=== PATIENT | female | born 1990 | race African-American/Black ===

== ENCOUNTER 2019-05-19 06:44 | Observation (INO) ==
--- NOTE | 2019-05-19 07:09 | PROVIDER DOCUMENTATION ---
HPI-Abdominal Pain/GI Problem - General Chief Complaint: Nausea/Vomiting Stated Complaint: ABD PAIN,NAUSEA Time Seen by Provider: 05/19/19 06:58 Source: patient Allergies/Adverse Reactions: Patient Allergies Allergy/AdvReac Type Severity Reaction Status Date / Time No Known Allergies Allergy Verified 05/19/19 06:52 Home Medications: Home Medication List Medication Instructions Recorded Confirmed Last Taken Type Dicyclomine [Bentyl] 10 mg PO Q6H PRN PRN #30 cap 05/17/19 05/19/19 05/19/19 Rx Famotidine [Pepcid] 20 mg PO BID #60 tab 05/17/19 05/19/19 05/19/19 Rx Ondansetron [Zofran] 4 mg PO Q4H PRN PRN #30 tab 05/17/19 05/19/19 05/19/19 Rx Sulfamethoxazole/Trimethoprim 1 ea PO Q12H #14 tab 05/17/19 05/19/19 05/19/19 Rx [Bactrim Ds Tablet] Promethazine [Phenergan] 25 mg PO Q6H PRN PRN #20 tab 05/18/19 05/19/19 05/19/19 Rx - History of Present Illness-ABD Nature of Presenting Problems: Patient complains of Nuasia, vomiting and diarrhea for 3 days. She was seen at [facility] twice yesterday. She states she is not better and has lower abdominal pain Abdominal Pain Onset Location: reports: LUQ, RLQ Pain Radiation: reports: no radiation Quality of Pain: reports: aching Onset/Duration: reports: 3 days ago Timing: reports: still present Activities at Onset: reports: none Exposure to sick contacts?: No Modifying Factors: improves with: nothing Associated Symptoms: reports: denies symptoms Last BM: last night Dark Stools Present?: reports: none noticed Rectal Bleeding: reports: none Rectal Pain: reports: none Emesis Description: reports: clear Bruising or Bleeding Gums?: No Similar Symptoms Previously?: No Recently seen or treated by another doctor?: No Review of Systems - Adult - REVIEW OF SYSTEMS - ADULT Constitutional: reports: no symptoms reported Eyes: reports: no symptoms reported Ears, Nose, Mouth & Throat: reports: no symptoms reported Cardiovascular: reports: no symptoms reported Respiratory: reports: no symptoms reported Gastrointestinal: reports: see HPI Genitourinary: reports: see HPI Musculoskeletal: reports: no symptoms reported Neurological: reports: no symptoms reported Psychiatric: reports: no symptoms reported Endocrine: reports: no symptoms reported Past History - Adult - PAST MEDICAL HISTORY-ADULT Review of Records: reports: Old Records Reviewed, Nursing Assessment Review Major Childhood Illnesses: reports: denies history Cardiovascular: reports: denies history Respiratory: reports: asthma Gastrointestinal: reports: denies history Obstetrical/Gynecological: reports: denies history Genitourinary: reports: denies history Musculoskeletal: reports: denies history Neurological: reports: denies history Psychiatric: reports: bipolar Endocrine/Immune: reports: denies history Other Conditions: reports: denies history - PRIOR SURGERIES/PROCEDURES Surgical/Procedure History: reports: cholecystectomy, BTL, - PRIOR HOSPITALIZATIONS Prior Hospitalizations: reports: for other non-related - IMMUNIZATION STATUS Childhood Immunizations: See Nurse Assessment Flu Vaccine: See Nurse Assessment - FAMILY HISTORY Family History: reviewed, not pertinent Physical Exam-General - PHYSICAL EXAM-ADULT Initial Vital Signs Reviewed: Yes - CONSTITUTIONAL General Appearance: appears well, alert - EYES Eyes: PERRL/EOMI, pink conjunctivae - HEAD, EARS, NOSE, MOUTH & THROAT HENMT: normocephalic/atraumatic, moist mucous membranes - NECK Neck: non-tender, full range of motion - RESPIRATORY Respiratory: chest non-tender, lungs clear - CARDIOVASCULAR Cardiovascular: normal peripheral pulses, regular rate, rhythm, no edema - GASTROINTESTINAL (ABDOMEN) Abdominal Exam: normal bowel sounds, soft, tenderness (says tender in lower abdomen with deep palpation) - LYMPHATIC Lymphatic: no adenopathy - MUSCULOSKELETAL Back Exam: normal inspection, no CVA tenderness Extremity: normal range of motion, non-tender, normal gait Progress - PLAN OF CARE/RESULTS Progress/Plan/Lab Results: Vital Signs - 8 hr 05/19/19 06:49 Temperature 97.8 F Pulse Rate 76 Respiratory Rate 16 Blood Pressure 125/81 O2 Sat by Pulse Oximetry 100 Orders Category Date Time Status CBC WITH ELECTRONIC DIFF [HEME] Stat Lab 05/19/19 07:05 Uncollected COMPREHENSIVE METABOLIC PANEL [CHEM] Stat Lab 05/19/19 07:05 Ordered UA NIMS W/REFLEX CULT [URINALYSIS] Stat Lab 05/19/19 07:04 Uncollected Result Diagrams: 05/19/19 07:20 05/19/19 07:20 - CONSULTS/PCP/HOSPITALIST Notification #1 *Consult/PCP/Hospitalist*: laureano Time Discussed: 09:12 (Admit to Dr Gutierrez) Departure - Departure Date of Disposition Decision: 05/19/19 Time of Disposition Decision: 09:13 DIAGNOSIS: UTI (urinary tract infection), Intractable vomiting with nausea Disposition: ADMITTED INPATIENT 09 Certified Medical Emergency: Emergent Condition: Stable Referrals and Follow-Ups: Geri De Oliveira CRNP [Primary Care Provider] - - Critical Care Note This patient required my direct & personal management of CC.: No Attestation - Physician/ NIRALI Attestation Patient care was provided by Advanced Practice Provider:: No The physician spent face to face time with patient:: Yes Advanced Practice Provider documentation review:: Supervising physician onsite and consulted in the evaluation and care of this patient. The physician did have a face to face encounter with the patient.
[2019-05-19] MEDS ORDERED: ZOFRAN IV ONE (07:32)
[2019-05-19 07:37] LABS: URINE SOURCE CATH
[2019-05-19 07:49] LABS: BASO# 0.02 X1000 (0.0-0.2); BASO% 0.2 % (0.0-0.8); EOS# 0.01 X1000 (0.0-0.7); EOS% 0.1 % (0.0-10.0); HEMATOCRIT 38.1 % (37.0-47.0); HEMOGLOBIN 12.4 g/dL (12.0-16.0); IMM GRAN# 0.04 X1000 (0.0-0.04); IMM GRAN% 0.3 % (0.0-0.5); LYMPH# 2.11 X1000 (1.2-3.4); LYMPH% 18.1 % (20.5-51.1); MCH 29.7 PG (27-31); MCHC 32.5 g/dL (33-37); MCV 91.1 FL (81-99); MONO# 0.76 X1000 (0.11-0.59); MONO% 6.5 % (1.7-9.3); MPV 9.2 FL (7.4-10.4); NEUT# 8.69 X1000 (1.4-6.5); NEUT% 74.8 % (42.2-75.2); PLT 365 X1000 (130-400); RBC 4.18 XMIL (4.2-5.4); RDW 13.5 % (11.5-14.5); WBC 11.63 X1000 (4.8-10.8)
[2019-05-19 07:50] LABS: BILIRUBIN URINE NEGATIVE (NEGATIVE); BLOOD URINE MODERATE (NEGATIVE); COLOR ORANGE; GLUCOSE URINE NEGATIVE (NEGATIVE); KETONE URINE 40 mg/dL (NEGATIVE); LEUKOCYTES URINE LARGE (NEGATIVE); NITRITE URINE NEGATIVE (NEGATIVE); PH URINE 6.5; PROTEIN URINE 70 mg/dL (NEGATIVE); SP GRAVITY URINE 1.032; TURBIDITY URINE TURBID (CLEAR); UROBILINOGEN URINE 3 mg/dL (NORMAL)
[2019-05-19 07:52] LABS: UR EPITHELIAL CELLS >10 /HPF (<10); URINE BACTERIA 2+ /HPF; URINE RBC TNTC /HPF (<10); URINE WBC TNTC /HPF (<10)
[2019-05-19 08:02] LABS: AGAP 17; ALB/GLOB RATIO 1.4; ALBUMIN 4.2 g/dL (3.5-5.0); ALKALINE PHOSPHATASE 74 U/L (32-104); BUN 8 mg/dL (8-22); CALCIUM 8.8 mg/dL (8.8-10.2); CHLORIDE 100 mmol/L (98-107); COSMO 279; CREATININE 1.2 mg/dL (0.5-0.9); ESTIMATED GFR > 60; GLUCOSE 87 mg/dL (70-104); GOT 17 U/L (10-30); GPT 12 U/L (10-36); POTASSIUM 2.9 mmol/L (3.5-5.1); SODIUM 141 mmol/L (136-145); TCO2 24 mmol/L (25-35); TOTAL BILIRUBIN 0.69 mg/dL (0.20-1.00); TOTAL PROTEIN 7.2 g/dL (6.3-8.3)
[2019-05-19] MEDS ORDERED: NS 1,000 ML IV ONE (08:07)
[2019-05-19] MEDS ORDERED: POTASSIUM CHLORIDE 10 MEQ/SWI 10 MEQ/100 ML IVPB IV ONE (08:08)
[2019-05-19] MEDS ORDERED: SODIUM CHLORIDE 0.9% INJ ONE (08:41)
[2019-05-19] MEDS ORDERED: PHENERGAN IV ONE (08:41)
[2019-05-19] MEDS ORDERED: LEVAQUIN 500 MG/D5W 500 MG/100 ML IVPB IV ONE (08:43)
[2019-05-19] MEDS ORDERED: TYLENOL PO PRN (10:17)
[2019-05-19] MEDS ORDERED: BENTYL PO PRN (10:17)
[2019-05-19] MEDS ORDERED: ZOFRAN IV PRN (10:17)
--- NOTE | 2019-05-19 10:45 | HISTORY AND PHYSICAL ---
PRIMARY CARE PHYSICIAN: BHUPINDER Avilez. CHIEF COMPLAINT: Nausea, vomiting, and diarrhea for the past 3 days with lower abdominal pain and hematuria and chills. HISTORY OF PRESENTING ILLNESS: This is a 28-year-old female who presents to [facility] with complaints of nausea, vomiting, and diarrhea for the past 3 days with lower abdominal pain, hematuria, and chills. Was seen at [facility] 2 times yesterday with the same complaints and was given fluids, placed on antibiotic and sent home. Her workup showed a white blood cell count of 11.63. Her potassium was 2.9, creatinine 1.2. Urinalysis showed moderate blood, negative nitrites, large leukocytes, 2+ bacteria. So she will be admitted for further evaluation and treatment. PAST MEDICAL HISTORY: Asthma and bipolar. PAST SURGICAL HISTORY: Cholecystectomy, section, bilateral tubal ligation, tonsillectomy and a LEEP surgery. FAMILY HISTORY: Reviewed and noncontributory. SOCIAL HISTORY: She currently lives alone. Smokes a pack of cigarettes a day. Denies any alcohol or illicit drug use. ALLERGIES: No known drug allergies. HOME MEDICATIONS: She takes Bentyl 10 mg p.o. q.6 hours p.r.n., Pepcid 20 mg p.o. b.i.d., Zofran 4 mg p.o. q.4 hours p.r.n. and will be held, Phenergan 25 mg p.o. q.6 hours p.r.n. will be held, and Bactrim DS 1 p.o. q.12 hours will be held. LABORATORY DATA: Showed a white blood cell count of 11.63, hemoglobin 12.4, hematocrit 38.1, and platelets 365,000. Sodium 141, potassium 2.9, chloride 100, CO2 24, BUN of 8, creatinine 1.2, glucose 87. Urinalysis showed moderate blood, negative nitrites, large leukocytes, and 2+ bacteria. REVIEW OF SYSTEMS: She denied any fever. She is positive for chills. Denies any blurred vision, dizziness, chest pain, coughing, shortness of breath. She has had nausea, vomiting, diarrhea, lower abdominal pain, hematuria. PHYSICAL EXAMINATION: VITAL SIGNS: On arrival, her temperature was 97.8 degrees, pulse 76, respirations 16, blood pressure 125/81, saturating 100% on room air. GENERAL: This is a 28-year-old female sitting up in the bed and answers questions appropriately. HEENT: Normocephalic, atraumatic. Normal ENT inspection. Oropharynx and nares are clear. EYES: Pupils are equal, round, reactive to light and accommodation. Extraocular movements are intact. NECK: Normal inspection, normal range of motion. LUNGS: Clear to auscultation bilaterally with equal lung expansion and chest wall movement. HEART: Regular rate and rhythm. No murmurs, rubs, or gallops. ABDOMEN: Soft, nontender, nondistended. Bowel sounds are present x4 quadrants. MUSCULOSKELETAL: She had 5/5 strength x4 extremities. NEUROLOGICAL: The cranial nerves 2-12 appear grossly intact. ASSESSMENT: 1. Intractable nausea, vomiting, diarrhea. 2. Urinary tract infection. 3. Mild acute kidney injury. 4. Hypokalemia. PLAN: She will be admitted to the medical unit. Placed on clear liquid diet and telemetry. SCDs for DVT prophylaxis. We will check stools for C diff. She had a stool culture, white blood cells. We will place her on normal saline 125 mL an hour, Rocephin 1 g IV every 24. Continue home medications as previously identified. Recheck a CBC and BMP in the a.m. and further orders after seen by attending. Dictated by BHUPINDER Eller for Jens León MD cc: BHUPINDER Eller MD Stephanie Weems, CRNP Pt examined, seen in conjunction with bhupinder; pt has mild abdominal tenderness, failed outpt tx with bactrim; will admit for iv abx, will get CT to r/o other pathology such as pyelonephritis or nephrolithiasis which is less likely. [facility]
[2019-05-19] MEDS: NS 1,000 ML IV SCH ×2 (11:28→23:13)
[2019-05-19] MEDS: PYRIDIUM PO SCH (16:07)
--- NOTE | 2019-05-19 20:37 | Diag Imaging Result Doc PS360 ---
EXAM: CT RENAL STONE SEARCH INDICATION: chantal TECHNIQUE: This exam was performed using automated exposure control, adjustment of mA or kV according to patient size, and/or use of iterative reconstruction technique. COMPARISON: 05/28/2018 FINDINGS: There has been a prior cholecystectomy. The liver, spleen, pancreas, and adrenal glands are unremarkable. There are no renal or ureteral stones and there is no hydronephrosis. The kidneys are grossly unremarkable, otherwise, as imaged with unenhanced CT. There are a few phleboliths in the pelvis. The urinary bladder is unremarkable. The reproductive tract is grossly unremarkable as imaged. There is trace free fluid in the pelvis, usually physiologic. The appendix is normal. There are a few scattered diverticula associated with the colon. There is no evidence of diverticulitis. There is mild fatty infiltration of the colonic wall, which is usually associated with elevated BMI. No other bowel wall thickening is identified. There is no evidence of bowel obstruction. The remainder of the GI tract is essentially unremarkable. No focal inflammatory changes or free abdominal gas is appreciated. There is no evidence of acute osseous abnormality. IMPRESSION: Incidental/nonacute findings detailed above. No definite acute pathology by unenhanced CT. Electronically signed by Seamus Camp 05/19/2019 8:34 PM
[2019-05-19] MEDS: PEPCID PO SCH (23:13)
[2019-05-20 05:36] LABS: BASO# 0.01 X1000 (0.0-0.2); BASO% 0.1 % (0.0-0.8); EOS# 0.02 X1000 (0.0-0.7); EOS% 0.3 % (0.0-10.0); HEMATOCRIT 32.1 % (37.0-47.0); HEMOGLOBIN 10.2 g/dL (12.0-16.0); LYMPH% 40.4 % (20.5-51.1); MCH 29.3 PG (27-31); MCHC 31.8 g/dL (33-37); MCV 92.2 FL (81-99); MONO# 0.44 X1000 (0.11-0.59); MONO% 5.5 % (1.7-9.3); MPV 9.2 FL (7.4-10.4); NEUT# 4.26 X1000 (1.4-6.5); NEUT% 53.7 % (42.2-75.2); PLT 308 X1000 (130-400); RBC 3.48 XMIL (4.2-5.4); RDW 13.4 % (11.5-14.5); WBC 7.93 X1000 (4.8-10.8)
[2019-05-20 05:44] LABS: AGAP 13; BUN 6 mg/dL (8-22); CALCIUM 7.8 mg/dL (8.8-10.2); CHLORIDE 106 mmol/L (98-107); COSMO 278; CREATININE 0.8 mg/dL (0.5-0.9); ESTIMATED GFR > 60; GLUCOSE 83 mg/dL (70-104); POTASSIUM 3.2 mmol/L (3.5-5.1); SODIUM 141 mmol/L (136-145); TCO2 22 mmol/L (25-35)
[2019-05-20] MEDS: NS 1,000 ML IV SCH ×2 (06:51→07:22)
[2019-05-20] MEDS ORDERED: ROCEPHIN 1 GM in NS 50 ML IV SCH (09:00)
[2019-05-20] MEDS: PYRIDIUM PO SCH ×2 (09:30→13:25)
[2019-05-20] MEDS: PEPCID PO SCH (09:30)
[2019-05-20] MEDS ORDERED: KLOR-CON PO ONE (12:16)
[2019-05-20 14:21] VITALS: BP 95/50
--- NOTE | 2019-05-21 00:01 | DISCHARGE SUMMARY ---
ADMISSION DATE: 05/19/2019 DISCHARGE DATE: 05/20/2019 DIAGNOSES: 1. Intractable nausea, vomiting, and diarrhea resolved. The patient is tolerating gastrointestinal soft without any difficulty. 2. Urinary tract infection growing gram-negative rods at present. 3. Mild acute kidney injury resolved with creatinine of 0.8. 4. Hypokalemia improved. DIAGNOSTICS: Renal CT revealed there are few phleboliths in the pelvis. Urinary bladder is unremarkable. Reproductive tract is grossly unremarkable. Appendix is normal. There are scattered diverticula with no evidence of diverticulitis. Microbiology. Urine culture revealed gram-negative anand. HOSPITAL COURSE: Ms. Mchugh presented to the emergency room complaining of nausea, vomiting and diarrhea with lower abdominal pain and hematuria. She was found to have a gram-negative anand UTI for which she was initially started on Levaquin, nausea, vomiting and abdominal pain resolved. She tolerated GI soft diet without any difficulty and she wished to be discharged. She was discharged on Levaquin 750 p.o. daily with the understanding that we will watch for her culture to result and call her at [phone] and if needed antibiotics will be changed pending culture results. DISCHARGE PHYSICAL EXAM: Vital Signs: Blood pressure is 106/57, heart rate of 66, respirations 16, temperature 98.3 degrees oral with room air saturations 100%. Cardiovascular: Regular rate and rhythm. S1 and S2 appreciated. Pulmonary: Breath sounds are clear with no increased work of breathing noted. Gastrointestinal: Abdomen soft, nontender, nondistended with bowel sounds in all 4 quadrants. Neurologic: She is alert, oriented x3. DISCHARGE MEDICATIONS: 1. Zofran 4 mg p.o. q.4 hours p.r.n. 2. Pepcid 20 mg p.o. b.i.d. 3. Levaquin 750 p.o. daily. 4. Bentyl 10 mg p.o. q.6 hours FOLLOWUP: BHUPINDER Avilez June 03 at 1 p.m. She has been instructed to call to be seen sooner or return to the ER for any nausea, vomiting, diarrhea, constipation, black or bloody vomitus or stools, temperature greater than 101, any chest pain, palpitations or for any questions or concerns that she may have. She is being discharged home in stable condition with family members. TIME SPENT: Greater than 30 minutes. Dictated by BHUPINDER Wright for Anshul Myers MD cc: BHUPINDER Wright MD
== END 2019-05-20 16:11 | disposition home or self-care (01) ==
LOC: ED 06:44 → EDIPHOLD 06:44 → SUATTDRO 09:44 → 1N 12:08
PROVIDERS: ATTEND Internal Medicine